=== PATIENT | male | born 1950 | race Caucasian/White ===

== ENCOUNTER 2020-05-28 05:38 | Observation (INO) | payer MEDICARE, SELFPAY ==
--- NOTE | ~2020-05-28 | XR_ITS ---
XR chest 1V portable DATE: 05/28/2020 06:22 INDICATION: Left-sided chest pain radiating to shoulder blades for 2 hours TECHNIQUE: Portable AP chest on 05/28/2020 at 0624 hours COMPARISON: None FINDINGS: Heart size is within normal limits. There is mild infiltrate or atelectasis at the lung bases. No pulmonary infiltrate or consolidation, pleural effusion or pulmonary vascular congestion or pneumo thorax is noted otherwise. IMPRESSION: Mild infiltrate or atelectasis at the lung bases Reviewed, dictated and finalized at location A.
[2020-05-28 05:45] VITALS: BP 138/77; PULSE 56; RESP 19; TEMP 36.5; O2SAT 99
--- NOTE | 2020-05-28 05:53 | ECG_ITS ---
Measurements Intervals [place] Rate: 57 P: -81 CA: 151 QRS: -21 QRSD: 109 T: -6 QT: 406 QTc: 397 Interpretive Statements SINUS BRADYCARDIA DELAYED PRECORDIAL R/S TRANSITION BORDERLINE T WAVE ABNORMALITY- ANT/INF LEADS BASELINE ARTIFACT- V1 BORDERLINE ECG Electronically Signed On 05-28-2020 6:46:39 CDT by Yovani Valdez D.O.
--- NOTE | 2020-05-28 05:53 | ED.CHESTPAIN ---
HPI - Chest Pain General Chief Complaint: Chest Pain Stated Complaint: cp Time Seen by Provider: 05/28/20 05:50 Source: RN notes reviewed History of Present Illness HPI narrative: Patient presents to emergency department from home for chest pain. Patient states he woke up approximately 4 AM and needed to use the restroom. He states when he sat up he began to have pain in between his shoulder blades going up into his neck. He states that pain then progressed into pain into his left upper chest. Patient states the pain described as an ache and a pressure. He states that he got up and walked around for a while and that the pain eventually subsided he did take 2 baby aspirin's at home. He states at this time he has no pain he denies any fevers or chills shortness of breath abdominal pain nausea vomiting or any other symptoms Related Data Home Medications Medication Instructions Recorded Confirmed aspirin 81 mg tablet,delayed 81 mg PO DAILY 03/08/20 release cetirizine 10 mg tablet 5 mg PO DAILY PRN 03/08/20 cholecalciferol (vitamin D3) 100 100 mcg PO DAILY 03/08/20 mcg (4,000 unit) capsule hydrocortisone 2.5 % topical cream 1 applic TOPICAL BID PRN 03/08/20 lisinopril 20 mg tablet 20 mg PO DAILY 03/08/20 rosuvastatin 20 mg tablet 20 mg PO DAILY 03/08/20 Allergies Allergy/AdvReac Type Severity Reaction Status Date / Time No Known Allergies Allergy Verified 05/28/20 05:50 Review of Systems Review of Systems: Narrative: Gen.: Denies fevers or chills ENT: Denies congestion Respiratory: Denies shortness of breath or cough CV: See HPI GI: Denies abdominal pain nausea, emesis or diarrhea Musculoskeletal: Denies back pain or muscle pain Neuro: Denies numbness, tingling, weakness or focal weakness Skin: Denies rash Except as documented, all other systems reviewed and negative [facility] Past Medical History Medical History (Updated 05/28/20 @ 06:41 by Maulik Telles DO) Hypercholesterolemia Hypertension Social History Social History (Updated 05/28/20 @ 05:55 by Maulik Telles DO) Smoking status: Never smoker Exam Narrative: Exam Narrative: APPEARANCE: No acute distress, nontoxic, resting in bed EYES: EOMI HEENT: Normocephalic, atraumatic, OMM RESPIRATORY: No respiratory distress Clear to auscultation bilaterally with no rhonchi wheezing or rales. CARDIOVASCULAR: Regular rate and rhythm without murmurs rubs or gallops. ABDOMINAL: Soft, nontender, nondistended, no rebound or guarding MUSCULOSKELETAl: Moves all extremities. No clubbing, cyanosis or edema. NEURO: Awake and alert. Following commands, speech normal, no focal deficits SKIN:: Warm, dry. No rashes lesions or abrasions PSYCHIATRIC: Normal affect/mood, Course Course Emergency Course: Discussed with Dr. Valdez presentation work-up. Agrees admission of the chest pain center Discussed with patient and family results of workup and diagnosis. Discussed need for admission. Patient and family understand and agree to current treatment plan Vital Signs Vital signs: Vital Signs Temperature 97.7 F 05/28/20 05:45 Pulse Rate 56 L 05/28/20 05:45 Respiratory Rate 19 05/28/20 05:45 Blood Pressure 138/77 05/28/20 05:45 Pulse Oximetry 99 05/28/20 05:45 Temperature 97.7 F 05/28/20 05:45 Pulse Rate 67 05/28/20 06:13 Respiratory Rate 19 05/28/20 05:45 Blood Pressure 138/77 05/28/20 05:45 Pulse Oximetry 99 05/28/20 05:45 MDM - Chest Pain Lab Data Result diagrams: 05/28/20 05:56 05/28/20 05:56 Labs: Lab Results 05/28/20 05/28/20 05/28/20 Range/Units 05:56 05:56 05:56 WBC 6.8 (4.5-10.0) K/mm3 RBC 4.58 L (4.6-6.20) M/mm3 Hgb 13.7 L (14.0-18.0) g/dL Hct 40.6 L (42.0-52.0) % MCV 88.6 (80-100) fl MCH 29.9 (26-34) pg MCHC 33.7 (32-36) g/dl RDW 12.3 (11.5-14.5) % Plt Count 239 (150-375) k/mm3 MPV 10.8 H (7.4-10.4) fl Immature Gran
[2020-05-28 06:03] LABS: Basophils Percent Auto 0.6 % (0.2-1.2); Eosinophils Absolute Auto 0.2 K/mm3 (0-0.3); Eosinophils Percent Auto 3.2 % (0-4.4); Hematocrit 40.6 % (42.0-52.0); Hemoglobin 13.7 g/dL (14.0-18.0); Immature Granulocyte Absolute 0.04 K/mm3 (0.00-0.031); Immature Granulocyte Percent A 0.6 % (0-0.5); Lymphocytes Absolute Auto 1.72 K/mm3 (0.9-3.2); Lymphocytes Percent Auto 25.1 % (18.3-44.2); Mean Corpuscular HGB Conc 33.7 g/dl (32-36); Mean Corpuscular Hemoglobin 29.9 pg (26-34); Mean Corpuscular Volume 88.6 fl (80-100); Mean Platelet Volume 10.8 fl (7.4-10.4); Monocytes Absolute Auto 0.7 K/mm3 (0.1-0.6); Monocytes Percent Auto 9.6 % (2.6-8.5); Neutrophils Absolute Auto 4.2 K/mm3 (1.3-6.7); Neutrophils Percent Auto 60.9 % (45.5-73.1); Platelet Count Result 239 k/mm3 (150-375); Red Blood Count 4.58 M/mm3 (4.6-6.20); Red Cell Distribution Width 12.3 % (11.5-14.5); White Blood Count 6.8 K/mm3 (4.5-10.0)
[2020-05-28] MEDS: ASPIRIN 81 MG CHEWABLE TABLET 324 MG PO (06:12)
[2020-05-28 06:13] VITALS: PULSE 67
[2020-05-28 06:14] LABS: INR 0.9; Partial Thromboplastin Time 21.5 SECONDS (22.3-36.8); Prothrombin Time 12.2 Seconds (11.1-14.7)
[2020-05-28 06:20] LABS: Alanine Aminotransferase 28 U/L (4-50); Albumin Level 4.3 g/dL (3.5-5.1); Alkaline Phosphatase 88 U/L (38-126); Anion Gap 8 mmol/L (8-16); Aspartate Amino Transferase 30 U/L (17-59); Bilirubin,Total 0.3 mg/dL (0.2-1.3); Blood Urea Nitrogen 26 mg/dL (9-20); Calcium 8.9 mg/dL (8.4-10.2); Carbon Dioxide 26 mmol/L (22-30); Chloride 105 mmol/L (98-107); Estimated Glomerular Filt Rate > 60; Glucose 111 mg/dL (75-110); Lipase 58 U/L (23-300); Potassium 4.3 mmol/L (3.4-5.0); Sodium 139 mmol/L (137-145)
[2020-05-28 06:31] LABS: Troponin I < 0.012 ng/mL (0.000-0.034)
[2020-05-28 06:54] VITALS: BP 115/71; PULSE 54; RESP 17; O2SAT 97
--- NOTE | 2020-05-28 07:50 | ADMGEN ---
This patient, Orlando Olmstead, was admitted to [facility] Patient/family oriented to hospital policies and general routines including ID bracelet, bed and alarms, visiting hours, pain management, procedures, bathroom and other care routines, personal items, smoking policy, room service/diet, and visiting hours. DENIES CP OR SOB ON ARRIVAL. Information on how to activate the Rapid Response Team has been discussed. Patient/Family are encouraged to report perceived risks to care and to ask questions if they do not understand what they are told or what they should do.
--- NOTE | 2020-05-28 07:58 | PC.NURSE ---
DR. HOWARD TO BEDSIDE TO SEE PT. EXPLAINED ORDERS AND PLAN OF CARE.
[2020-05-28 08:00] VITALS: BP 132/75; PULSE 56; PULSE 59; RESP 17; TEMP 36.4; O2SAT 100; BMI 33.3
--- NOTE | 2020-05-28 08:15 | PM.IMHP ---
H&P: HPI History of Present Illness Date/Time: 05/28/20 08:15 Reason for admit: Chest pain. 69 yr old man presented to ED with chest pain. He has a history of hypertension and dyslipidemia. Reports he woke up at 4:30 this morning to use restroom and noted scapular pain that radiated to neck then anterior left chest area. He took 2 baby aspirin at home, had a large bowel movement, and chest pain resolved. He woke up his and she drove him in to ED. No recurrence of chest pains. He states that he does have occasional back pain that he has to move his body and it would resove. He can walk miles without any problems. Chief complaint: chest pain Narrative: Orlando Olmstead is a 69 year old male Review of Systems Review of Systems: All systems reviewed & are unremarkable except as noted in HPI and below Constitutional: Constitutional: Reports as per HPI, Denies chills and Denies fever(s) Cardiovascular: Cardiovascular: Reports as per HPI, Reports chest pain, Denies leg edema, Denies lightheadedness and Denies dyspnea on exertion Respiratory: Respiratory: Reports as per HPI and Denies dyspnea Gastrointestinal: Gastrointestinal: Reports as per HPI and Denies abdominal pain Genitourinary: Genitourinary: Reports as per HPI and Denies dysuria Musculoskeletal: Musculoskeletal: Reports as per HPI and Reports back pain Neurologic: Reports as per HPI, Denies dizziness and Denies syncope [facility] Past Medical History Medical History (Updated 05/28/20 @ 06:41 by Maulik Telles DO) Hypercholesterolemia Hypertension Social History Social History (Updated 05/28/20 @ 05:55 by Maulik Telles DO) Smoking status: Never smoker Meds Home Medications and Allergies Home Medications Medication Instructions Recorded Confirmed Type aspirin 81 mg tablet,delayed 81 mg PO DAILY 03/08/20 History release cetirizine 10 mg tablet 5 mg PO DAILY PRN 03/08/20 History cholecalciferol (vitamin D3) 100 100 mcg PO DAILY 03/08/20 History mcg (4,000 unit) capsule hydrocortisone 2.5 % topical cream 1 applic TOPICAL BID PRN 03/08/20 History lisinopril 20 mg tablet 20 mg PO DAILY 03/08/20 History rosuvastatin 20 mg tablet 20 mg PO DAILY 03/08/20 History Allergies Allergy/AdvReac Type Severity Reaction Status Date / Time No Known Allergies Allergy Verified 05/28/20 05:50 Vital Signs Vital Signs - 24 hr 05/28/20 05:45 05/28/20 06:13 05/28/20 06:54 Temperature 97.7 F Pulse Rate 56 L 67 54 L Respiratory Rate 19 17 Blood Pressure 138/77 115/71 Pulse Oximetry 99 97 Exam Const: General: cooperative, healthy appearing and comfortable Neck: Neck: no JVD Carotids: no bruits Resp: Auscultation: clear to auscultation bilaterally, no crackles, no rales, no rhonchi and no wheezes Cardio: Jugular venous distension: no JVD Rate: regular rate Rhythm: regular rhythm Heart sounds: no murmurs Peripheral pulses: dorsalis pedis present GI: GI Palp: No abdominal tenderness and Yes Soft to palpation Neuro: General: oriented to person, oriented to place and oriented to time Extrem: Right lower extremity: no edema Left lower extremity: no edema H&P: Results Labs Labs: Short CBC 05/28/20 Range/Units 05:56 WBC 6.8 (4.5-10.0) K/mm3 Hgb 13.7 L (14.0-18.0) g/dL Hct 40.6 L (42.0-52.0) % Plt Count 239 (150-375) k/mm3 BMP 05/28/20 05:56 Sodium 139 Potassium 4.3 Chloride 105 Carbon Dioxide 26 BUN 26 H Creatinine 0.90 Glucose 111 H Calcium 8.9 Cardiac Enzymes 05/28/20 Range/Units 05:56 Troponin I < 0.012 (0.000-0.034) ng/mL Liver Function 05/28/20 Range/Units 05:56 Total Bilirubin 0.3 (0.2-1.3) mg/dL AST 30 (17-59) U/L ALT 28 (4-50) U/L Alkaline Phosphatase 88 (38-126) U/L Albumin 4.3 (3.5-5.1) g/dL Assessment and Plan Assessment and plan (1) Chest pain: Code(s): R07.9 - Chest pain, unspecified Stat
--- NOTE | 2020-05-28 09:35 | ECG_ITS ---
Measurements Intervals [place] Rate: 53 P: 38 NM: 193 QRS: -21 QRSD: 101 T: -10 QT: 403 QTc: 379 Interpretive Statements SINUS BRADYCARDIA DELAYED PRECORDIAL R/S TRANSITION BORDERLINE T WAVE ABNORMALITY- INFERIOR LEADS BORDERLINE ECG Electronically Signed On 05-28-2020 9:37:50 CDT by Yovani Valdez D.O.
[2020-05-28 09:43] LABS: Cholesterol 137 mg/dL (0-200); HDL Direct 39 mg/dL; Triglycerides 77 mg/dL (<150)
[2020-05-28 09:54] LABS: LDL Cholesterol Direct 84 mg/dL
[2020-05-28 09:55] LABS: Troponin I < 0.012 ng/mL (0.000-0.034)
[2020-05-28 10:00] VITALS: PULSE 56
--- NOTE | 2020-05-28 11:00 | EST_ITS ---
Patient Info Name: Orlando Olmstead Age: 69 years : 1950 Gender: Male Ht: 69 in Wt: 248 lbs BSA: 2.38 m2 HR: 64 bpm BP: 127 / 67 mmHg Exam Date: 05/28/2020 11:12 AM Exam Location: [facility] Patient Status: Inpatient Admit Date: 05/28/2020 Staff Ordering Physician: Yovani Valdez DO Certified Pedorthotist: Esteban Flannery RDCS, RT Attending Provider: Yovani Valdez DO Exercise Technologist: Anni Amaro RDCS Exercise Physician: Yovani Valdez DO Exam Type: CA stress echo Study Info Indications R07.9 - Chest pain, unspecified Treadmill exercise stress echocardiogram is performed. Summary 1. 1. Negative Obed exercise stress test for ischemic ST changes by ECG criteria. 2. 2. Good functional capacity, achieving 10 METs of workload. 3. 3. Appropriate HR response to exercise. 4. 4. Appropriate HR recovery at 1 minute post exercise. 5. 5. Negative stress echocardiogram for ischemia by wall motion analysis. 6. 6. Patient informed of the above results. Stress Echo Findings Left Ventricle Appropriate increase in LV endocardial thickening with systole. Appropriate augmenation of contractility with systole. No wall motion abnormality. Left Ventricle Normal LV systolic function, no wall motion abnormality. Protocol: Obed Stress ECG Details Stage: REST Duration (min): 0 min : 42 sec Speed (mph): 0.0 Grade (%): 0 HR (bpm): 56 SBP (mmHg): --- DBP (mmHg): --- METS: --- Stage: REST Duration (min): 13 min : 46 sec Speed (mph): 0.0 Grade (%): 0 HR (bpm): 73 SBP (mmHg): 127 DBP (mmHg): 67 METS: --- Stage: STAGE 1 Duration (min): 1 min : 0 sec Speed (mph): 1.7 Grade (%): 10 HR (bpm): 92 SBP (mmHg): 127 DBP (mmHg): 67 METS: --- Stage: STAGE 1 Duration (min): 2 min : 0 sec Speed (mph): 1.7 Grade (%): 10 HR (bpm): 102 SBP (mmHg): 127 DBP (mmHg): 67 METS: --- Stage: STAGE 1 Duration (min): 3 min : 0 sec Speed (mph): 1.7 Grade (%): 10 HR (bpm): 105 SBP (mmHg): 127 DBP (mmHg): 67 METS: --- Stage: STAGE 2 Duration (min): 1 min : 0 sec Speed (mph): 2.5 Grade (%): 12 HR (bpm): 110 SBP (mmHg): 143 DBP (mmHg): 74 METS: --- Stage: STAGE 2 Duration (min): 2 min : 0 sec Speed (mph): 2.5 Grade (%): 12 HR (bpm): 116 SBP (mmHg): 143 DBP (mmHg): 74 METS: --- Stage: STAGE 2 Duration (min): 3 min : 0 sec Speed (mph): 2.5 Grade (%): 12 HR (bpm): 119 SBP (mmHg): 143 DBP (mmHg): 74 METS: --- Stage: STAGE 3 Duration (min): 1 min : 0 sec Speed (mph): 3.4 Grade (%): 14 HR (bpm): 129 SBP (mmHg): 143 DBP (mmHg): 74 METS: --- Stage: STAGE 3 Duration (min): 2 min : 0 sec Speed (mph): 3.4 Grade (%): 14 HR (bpm): 134 SBP (mmHg): 156 DBP (mmHg): 88 METS: --- Stage: STAGE 3 Duration (min): 2 min : 1 sec Speed (mph): 0.0 Grade (%):
--- NOTE | 2020-05-28 11:09 | PC.NURSE ---
TO STRESS ECHOCARDIOGRAM VIA WC FOR TESTING. DENIES CP OR SOB AT THIS TIME. AT BEDSIDE.
--- NOTE | 2020-05-28 11:48 | PM.DS ---
DS: Admitting Diagnosis Admitting Diagnosis Admitting Diagnosis: chest pain DS: Summary Hospital Course Hospital Course: Please refer to H and P as this is same day discharge. 69 yr old man presented to ED with chest pains. No recurrence since he's been in hospital. Troponins and EKG are negative. Stress echo shows no ischemia. He is feeling great. His chest pain is likely musculoskeletal in origin. Patient will be discharged home on same home medications. F/U with me in 1-2 weeks. Diet: Heart healthy diet. Acitivity: as tolerated. Disposition: Home. F/U with me in 1-2 weeks. Status at Discharge Functional status at discharge: independent ambulation Overall status at discharge: patient is back to baseline Time Spent with Patient Time attestation: Total time spent providing and/or coordinating discharge services: Time spent: Less than 30 minutes Specific discharge activities: Activity as tolerated. DS: Data Data Completed and Pending Labs on day of discharge: Labs from last 24 hours 05/28/20 05/28/20 05/28/20 09:20 09:20 05:56 WBC RBC Hgb Hct MCV MCH MCHC RDW Plt Count MPV Immature Gran % (Auto) Neut % (Auto) Lymph % (Auto) [place] % (Auto) Eos % (Auto) Baso % (Auto) Lymph # (Auto) [place] # (Auto) Eos # (Auto) Baso # (Auto) Abs Immat Gran (auto) Absolute Neuts (auto) Absolute Nucleated RBC Nucleated RBC % PT INR APTT Sodium 139 Potassium 4.3 Chloride 105 Carbon Dioxide 26 Anion Gap 8 BUN 26 H Creatinine 0.90 Estim Creat Clear Calc Not Reportable Estimated GFR > 60 Glucose 111 H Calcium 8.9 Total Bilirubin 0.3 AST 30 ALT 28 Alkaline Phosphatase 88 Troponin I < 0.012 < 0.012 Total Protein 7.0 Albumin 4.3 Triglycerides 77 Cholesterol 137 LDL Cholesterol Direct 84 HDL Direct 39 Lipase 58 05/28/20 05/28/20 05:56 05:56 WBC 6.8 RBC 4.58 L Hgb 13.7 L Hct 40.6 L MCV 88.6 MCH 29.9 MCHC 33.7 RDW 12.3 Plt Count 239 MPV 10.8 H Immature Gran % (Auto) 0.6 H Neut % (Auto) 60.9 Lymph % (Auto) 25.1 [place] % (Auto) 9.6 H Eos % (Auto) 3.2 Baso % (Auto) 0.6 Lymph # (Auto) 1.72 [place] # (Auto) 0.7 H Eos # (Auto) 0.2 Baso # (Auto) 0.0 Abs Immat Gran (auto) 0.04 H Absolute Neuts (auto) 4.2 Absolute Nucleated RBC 0.0 Nucleated RBC % 0.0 PT 12.2 INR 0.9 APTT 21.5 L Sodium Potassium Chloride Carbon Dioxide Anion Gap BUN Creatinine Estim Creat Clear Calc Estimated GFR Glucose Calcium Total Bilirubin AST ALT Alkaline Phosphatase Troponin I Total Protein Albumin Triglycerides Cholesterol LDL Cholesterol Direct HDL Direct Lipase Discharge Plan Discharge Discharging Clinician: Yovani Valdez Patient Disposition: Home, Self-Care Activity: as tolerated Diet: heart healthy Patient Instructions: Antibiotic Form Stand Alone Forms: General Discharge Information Follow-up/Referrals: Yovani Valdez DO [Physician] - 2 Weeks Discharge Medications: Continued hydrocortisone 2.5 % cream 1 applic TOPICAL BID PRN (Reason: Itching) RF: 0 lisinopril 20 mg tablet 20 mg PO HS RF: 0 rosuvastatin 20 mg tablet 20 mg PO HS RF: 0 aspirin [Adult Low Dose Aspirin] 81 mg tablet,delayed release (DR/EC) 81 mg PO DAILY RF: 0 cetirizine 10 mg tablet 5 mg PO DAILY PRN (Reason: Congestion) RF: 0 cholecalciferol (vitamin D3) 100 mcg (4,000 unit) capsule 100 mcg PO DAILY RF: 0 Date of admission: 05/28/20 06:35 Primary Care Provider: Yun,Kari De La Torre Admitting Provider: Yovani Valdez Attending physician on admission: Yovani Valdez Condition: Stable
--- NOTE | 2020-05-28 11:57 | PC.NURSE ---
RETURNS TO BUSINESS SYSTEMS LEAD 6 VIA WC S/P STRESS ECHO.
--- NOTE | 2020-05-28 12:45 | PC.NURSE ---
PER DR. HOWARD, OK TO DISCHARGE HOME WITHOUT COMPLETING 6HR TROPONIN OR EKG. STRESS TEST NEGATIVE. IV SITE DISCONTINUED INTACT. SLADE WELL. SITE WNL AND DRESSED. REVIEWED DISCHARGE INSTRUCTIONS W/ PT. QUESTIONS ANSWERED. VOICED UNDERSTANDING OF ALL. COPY OF SUCH GIVEN. DENIES CP OR SOB AT THIS TIME. DISCHARGED HOME AT 1250, OUT AMBULATORY W/ ALL PERSONAL BELONGINGS AND DISCHARGE INSTRUCTIONS IN HAND W/ AT SIDE. VOICES NO C/O.
== END 2020-05-28 12:50 | disposition home or self-care (01) ==
LOC: ANHED 06:41 → ANHCPC 06:43
PROVIDERS: Admitting Provider Internal Medicine Cardiovascular Disease; Emergency Provider Emergency Medicine; PCP Family Medicine; Visit Provider Internal Medicine Cardiovascular Disease
DX: R07.89 Other chest pain (principal); I10 Essential (primary) hypertension; E78.00 Pure hypercholesterolemia, unspecified
CPT/HCPCS: 36415; 71045; 80053; 80061; 83690; 84484; 85025; 85610; 85730; 93005; 93351; 99285; A9270; G0378

== ENCOUNTER 2020-06-05 08:20 | Emergency (ER) | payer MEDICARE, SELFPAY ==
[2020-06-05 08:25] VITALS: BP 137/76; PULSE 74; RESP 16; TEMP 36.8; O2SAT 100
--- NOTE | 2020-06-05 08:39 | ED.GENADULT ---
HPI - General Adult General Chief complaint: Skin/Abscess/Foreign Body Stated complaint: RASH Source: patient Mode of arrival: ambulatory Limitations: no limitations History of Present Illness HPI narrative: 69 y/o male. PMH includes: See Chart. Presents to clinic today with acute complaints of Rash/Poison Tiarra located to bilateral lower extremities and LT hand for past 5 days. Pt reports working with shrubs in yard when manifestations first began. He has been using Calamine and Aveeno OTC treatments at home, with Sub-therapeutic relief. No facial or oral involvements. No dyspnea. No large open wounds. He reports last time he had similar issues, steroids worked well . He is not a diabetic. No additional acute c/o upon PE. Related Data Home Medications Medication Instructions Recorded Confirmed aspirin 81 mg tablet,delayed 81 mg PO DAILY 03/08/20 05/28/20 release cholecalciferol (vitamin D3) 100 100 mcg PO DAILY 03/08/20 05/28/20 mcg (4,000 unit) capsule lisinopril 20 mg tablet 20 mg PO HS 03/08/20 05/28/20 rosuvastatin 20 mg tablet 20 mg PO HS 03/08/20 05/28/20 Allergies Allergy/AdvReac Type Severity Reaction Status Date / Time No Known Allergies Allergy Verified 05/28/20 09:38 Review of Systems Review of Systems: Narrative: CONSTITUTIONAL: Denies fever, chills, sweats. EYES: Denies visual changes, redness, discharge. ENT: Denies rhinorrhea, congestion, sore throat, otalgia. CARDIOVASCULAR: Denies chest pain, palpitations, edema. RESPIRATORY: Denies dyspnea, wheezing, cough GASTROINTESTINAL: Denies abdominal pain, nausea, vomiting, diarrhea. GENITOURINARY: Denies dysuria, hematuria, abnormal discharge SKIN: Rash and itching to bilateral legs and LT hand. MUSCULOSKELETAL: Denies acute back pain, joint pain, or myalgia. NEUROLOGIC: Denies numbness, or focal weakness. PSYCHIATRIC: Denies anxiety or depression. [facility] Past Medical History Medical History Hypercholesterolemia Hypertension Social History Social History Smoking status: Never smoker Second hand tobacco smoke exposure: No Alcohol intake: current Drinks per week: 2 Substance use type: does not use Gender identity (if verbalized by the patient): Male Spiritual care concerns: No Exam Narrative: Exam Narrative: GENERAL: This is a well-nourished, well-developed patient, in no apparent distress. HEAD: normocephalic, atraumatic. EYES: PERRL. Sclera clear/white. Vision is grossly intact. EARS: External ears normal, auditory canals clear and without drainage, TMs normal without perforation. Hearing grossly intact. NOSE: External nose normal with no obvious nasal discharge, nares without redness, no rhinorrhea. THROAT: Mucous membranes moist, posterior pharynx clear. NECK: Neck supple, non-tender without lymphadenopathy, masses or thyromegaly. CARDIOVASCULAR: Regular rate and rhythm without murmurs, gallops, or rubs. RESPIRATORY: Clear to auscultation. Breath sounds equal bilaterally. No wheezes, rales, or rhonchi. GASTROINTESTINAL: Abdomen soft, non-tender, nondistended. Bowel sounds are active. No hepato-splenomegaly, or palpable masses. No guarding. SKIN: With scattered raised patches of blistering and crustations located to posterior knee LLE, as well as posterior calf RLE. LT hand with small area above LT thumb. Serosanguineous discharge to all areas. Consistent with poison tiarra/oak. No deep tissue wounds. Good turgor. NEURO: awake, alert, and oriented to person, place and time. There were no obvious focal neurologic abnormalities. Steady gait EXTREMITIES: Normal range of motion. No edema. No calf tenderness. Negative Homans sign bilaterally. BACK: Nontender without deformity or crepitance. No flank tenderness. Gabrielle Coma Scale Eye Opening: Spontaneous 4 Gabrielle Coma Scale Motor: Obeys Commands 6 Gabrielle Coma Sca
[2020-06-05] MEDS: TRIAMCINOLONE ACET INJ 40 MG/ML VIAL IM (08:46)
== END 2020-06-05 09:13 | disposition home or self-care (01) ==
PROVIDERS: Emergency Provider Nurse Practitioner Adult Health
DX: L25.5 Unspecified contact dermatitis due to plants, except food (principal); E78.00 Pure hypercholesterolemia, unspecified; I10 Essential (primary) hypertension
CPT/HCPCS: 96372; 99213; G0463; J3301

== ENCOUNTER 2022-12-04 08:19 | Emergency (ER) | payer MEDICARE, SELFPAY ==
[2022-12-04] VITALS (25 sets, daily range): BP systolic 99–129; BP diastolic 50–87; PULSE 48–65; RESP 11–19; O2SAT 98–100
--- NOTE | ~2022-12-04 | CT_ITS ---
EXAMINATION: CT brain wo con DATE: 12/04/2022 09:44 INDICATION: Fall with head injury TECHNIQUE: Computed tomography (CT) of the head was performed without intravenous contrast. Sagittal and coronal reconstructions were performed. The mA was adjusted according to patient size. Iterative reconstruction technique was employed. The dose-length product was 605.33 mGy-cm. COMPARISON: None FINDINGS: No fracture. No acute intracranial hemorrhage, acute infarction or abnormal extra axial fluid collect ion. Prominent perivascular space at the inferior aspect of the right basal ganglia. Ventricles are n ormal and symmetric. No mass/mass effect. The orbits, paranasal sinuses and mastoid air cells are nor mal. IMPRESSION: 1. No fracture or acute intracranial process. Reviewed, dictated and finalized at location L.
--- NOTE | ~2022-12-04 | XR_ITS ---
EXAMINATION: XR chest 1V portable DATE: 12/04/2022 09:14 INDICATION: Weakness post fall TECHNIQUE: frontal view of the chest was obtained. COMPARISON: Chest radiograph dated 05/28/2020 FINDINGS: The lungs are clear with no focal airspace opacities, pulmonary edema, pleural effusion or pneumothor ax. The cardiomediastinal silhouette is normal. Visualized bones and soft tissues are unremarkable. IMPRESSION: 1. No acute cardiopulmonary disease. Reviewed, dictated and finalized at location L.
--- NOTE | ~2022-12-04 | CT_ITS ---
EXAMINATION: CT facial & cervical spine wo DATE: 12/04/2022 09:44 INDICATION: Head injury. TECHNIQUE: Computed tomography (CT) of the maxillofacial region and cervical spine was performed with out intravenous contrast. Automated exposure control and iterative reconstruction technique were empl oyed. The dose-length product was 482.02 mGy-cm. COMPARISON: None FINDINGS: MAXILLOFACIAL CT: There is rightward deviation of the nasal septum. No fracture. There is mild mucosal thickening in th e paranasal sinuses. The orbits are normal. CERVICAL SPINE CT: There is 3 degrees levocurvature of cervical spine. Vertebral body heights are normal. There is moder ately decreased disc height from C2-C3 through C4-C5 and severely decreased disc height at C5-C6 and C6-C7. The following disc levels are specifically discussed: C2-C3: There is ankylosis of left uncovertebral joint with mild hypertrophy. There is moderate left f acet joint osteoarthritis. There is ankylosis of right facet joint with mild hypertrophy. There is mi ld bilateral neural foraminal stenosis. There is no central canal stenosis. C3-C4: There is severe right and mild left uncovertebral joint osteoarthritis. There is severe right and moderate left facet joint osteoarthritis. There is moderate right and mild left neural foraminal stenosis. There is mild central canal stenosis. C4-C5: There is severe bilateral uncovertebral joint osteoarthritis. There is mild right and moderate left facet joint osteoarthritis. There is mild right and moderate left neural foraminal stenosis. Th ere is mild central canal stenosis. C5-C6: There is severe bilateral uncovertebral joint osteoarthritis. There is mild bilateral facet kiera int osteoarthritis. There is moderate right and mild left neural foraminal stenosis. There is moderat e central canal stenosis. C6-C7: There is severe bilateral uncovertebral joint osteoarthritis. There is severe right and modera te left facet joint osteoarthritis. There is mild bilateral neural foraminal stenosis. There is mild central canal stenosis. C7-T1: There is no uncovertebral joint osteoarthritis. There is severe right and moderate left facet joint osteoarthritis. There is mild right neural foraminal stenosis. There is no central canal stenos is. IMPRESSION: 1. No fracture. 2. Severe cervical spondylosis. Reviewed, dictated and finalized at location A.
--- NOTE | 2022-12-04 08:32 | ECG_ITS ---
Measurements Intervals [place] Rate: 57 P: 18 AR: 184 QRS: -23 QRSD: 105 T: 33 QT: 414 QTc: 405 Interpretive Statements SINUS BRADYCARDIA CANNOT RULE OUT SEPTAL INFARCT, AGE INDETERMINATE BASELINE ARTIFACT- I, II, AVR, V1 ABNORMAL ECG COMPARED TO ECG 05/28/2020 09:29:30 MYOCARDIAL INFARCT FINDING NOW PRESENT Electronically Signed On 12-04-2022 9:05:44 CDT by Yovani Valdez D.O.
--- NOTE | 2022-12-04 08:38 | ED.GENADULT ---
HPI - General Adult General Chief complaint: Wound/Laceration Stated complaint: FALL, CHIN LAC Time Seen by Provider: 12/04/22 08:37 Source: patient and family Mode of arrival: ambulatory Limitations: no limitations History of Present Illness HPI narrative: Patient is a 72-year-old male with a history of hypertension, hyperlipidemia, presenting to the emergency department for evaluation following a fall. Patient states that he was outside working on his deck when he tripped over a landscaping stone, causing him to fall forward. Patient states that he covered his face with his right arm. Patient reports that his watch did hit his face, and caused a small abrasion to his chin. Patient denies loss of consciousness. No prodromal symptoms prior to this such as lightheadedness, dizziness or palpitations. Patient denies any current severe headache pain, neck pain, vision changes, nausea or vomiting. He denies chest wall pain, pelvic pain, back pain or extremity pain. He has been ambulatory since that time. Patient states that in route to the hospital he became slightly lightheaded. Reports that he began to feel very anxious. Denies passing out. Related Data Home Medications Medication Instructions Recorded Confirmed aspirin 81 mg tablet,delayed 81 mg PO DAILY 03/08/20 09/16/21 release (Adult Low Dose Aspirin) cholecalciferol (vitamin D3) 100 100 mcg PO DAILY 03/08/20 09/16/21 mcg (4,000 unit) capsule lisinopril 20 mg tablet 20 mg PO HS 03/08/20 09/16/21 rosuvastatin 20 mg tablet 20 mg PO HS 03/08/20 09/16/21 Allergies Allergy/AdvReac Type Severity Reaction Status Date / Time No Known Allergies Allergy Verified 12/04/22 08:20 Review of Systems Review of Systems: CONSTITUTIONAL: Denies fever, chills, or sweats. EYES: Denies visual changes, redness, or discharge. ENT: Denies rhinorrhea, congestion, sore throat, or otalgia. CARDIOVASCULAR: Denies chest pain, palpitations, or edema. RESPIRATORY: Denies cough or dyspnea. GASTROINTESTINAL: Denies abdominal pain, nausea, vomiting, or diarrhea. GENITOURINARY: Denies dysuria or hematuria. SKIN: Denies rash or itching. Reports abrasion to chin and nose. MUSCULOSKELETAL: Denies back pain, joint pain, or myalgia. NEUROLOGIC: Denies headache, numbness, or weakness. PMFSH Past Medical History Medical History Hypercholesterolemia Hypertension Social History Social History Smoking status: Never smoker Second hand tobacco smoke exposure: No Alcohol intake: current Drinks per week: 2 Alcohol use details: 2 BEERS WEEKLY Substance use type: does not use Living arrangements: with family Gender identity (if verbalized by the patient): Male Spiritual care concerns: No Exam Narrative: Nursing note and vitals reviewed. CONSTITUTIONAL: The patient appears well-developed and well-nourished. No distress. HEAD: Normocephalic; stellate abrasion to chin. Abrasion to nasal bridge. Edema of nasal bridge. EYES: PERRL, EOMI, normal conjunctiva, anicteric EARS: External ears clear bilaterally, no hemotympanum MOUTH: OP clear, no erythema, exudates NECK: midline trachea, supple, FROM. No midline cervical spinal tenderness. CARDIOVASCULAR: Normal rate, regular rhythm, normal heart sounds and intact distal pulses. No murmurs, rubs, gallops. PULMONARY: Effort normal and breath sounds normal. No respiratory distress. The patient has no wheezes, rales, rhonchi. No chest wall tenderness, crepitus or ecchymoses. ABDOMINAL: Soft. Nontender, nondistended. No palpable masses EXTREMITIES:: moving all extremities symmetrically. -RUE: No deformity. Normal ROM at shoulder, elbow, wrist, and hand. Sensation intact M/U/R. Pulse 2+. -LUE: No deformity. Normal ROM at shoulder, elbow, wrist, and hand. Sensation intact M/U/R. Pulse 2+ -RLE: No deformity. Normal ROM at hip, knee, a
[2022-12-04] MEDS: SODIUM CHLORIDE 0.9% IV 1,000 ML 999 ML IV CONT (08:47)
[2022-12-04 09:05] LABS: Glucose Point of Care 130 mg/dl (65-105)
[2022-12-04 09:08] LABS: Fractional Inspired Oxygen 21 %; HCO3 VBG 19.8 mEq/l (24.0-30.0); PO2 VBG 28.9 mmHg (35.0-45.0)
[2022-12-04 09:11] LABS: Basophils Percent Auto 0.7 % (0.2-1.2); Eosinophils Absolute Auto 0.1 K/mm3 (0-0.3); Eosinophils Percent Auto 2.5 % (0-4.4); Hematocrit 40.2 % (42.0-52.0); Hemoglobin 13.4 g/dL (14.0-18.0); Immature Granulocyte Absolute 0.01 K/mm3 (0.00-0.031); Immature Granulocyte Percent A 0.2 % (0-0.5); Lymphocytes Absolute Auto 1.21 K/mm3 (0.9-3.2); Lymphocytes Percent Auto 30.1 % (18.3-44.2); Mean Corpuscular HGB Conc 33.3 g/dl (32-36); Mean Corpuscular Hemoglobin 29.8 pg (26-34); Mean Corpuscular Volume 89.3 fl (80-100); Mean Platelet Volume 10.1 fl (7.4-10.4); Monocytes Absolute Auto 0.5 K/mm3 (0.1-0.6); Monocytes Percent Auto 11.9 % (2.6-8.5); Neutrophils Absolute Auto 2.2 K/mm3 (1.3-6.7); Neutrophils Percent Auto 54.6 % (45.5-73.1); Platelet Count Result 259 k/mm3 (150-375); Red Cell Distribution Width 12.4 % (11.5-14.5)
[2022-12-04 09:12] LABS: pH VBG 7.468 (7.300-7.400)
[2022-12-04 09:21] LABS: Prothrombin Time 13.3 Seconds (11.1-14.7)
[2022-12-04 09:22] LABS: Partial Thromboplastin Time 21.2 SECONDS (22.3-36.8)
[2022-12-04 09:26] LABS: Lactic Acid Reflex 1.4 mmol/L (0.7-2.0)
[2022-12-04 09:27] LABS: Alanine Aminotransferase 30 U/L (6-50); Albumin Level 4.2 g/dL (3.5-5.1); Alkaline Phosphatase 74 U/L (38-126); Anion Gap 5 mmol/L (8-16); Aspartate Amino Transferase 33 U/L (17-59); Bilirubin,Total 0.6 mg/dL (0.2-1.3); Blood Urea Nitrogen 18 mg/dL (9-20); Calcium 9.1 mg/dL (8.4-10.2); Carbon Dioxide 26 mmol/L (22-30); Chloride 103 mmol/L (98-107); Estimated CRCL calculation 77 ml/min; Estimated Glomerular Filt Rate > 60; Glucose 138 mg/dL (65-110); Potassium 4.6 mmol/L (3.4-5.0); Sodium 134 mmol/L (137-145)
--- NOTE | 2022-12-04 09:36 | PC.NURSE ---
Patient off unit to CT.
[2022-12-04 09:39] LABS: NT Pro B Type Natriuretic Pept 44 pg/mL (19.9-100); Troponin I < 0.012 ng/mL (0.000-0.034)
[2022-12-04 12:14] LABS: Troponin I < 0.012 ng/mL (0.000-0.034)
== END 2022-12-04 12:54 | disposition home or self-care (01) ==
PROVIDERS: Emergency Provider Emergency Medicine
DX: S00.81XA Abrasion of other part of head, initial encounter (principal); R00.1 Bradycardia, unspecified; S00.33XA Contusion of nose, initial encounter; I10 Essential (primary) hypertension; E78.00 Pure hypercholesterolemia, unspecified; Z79.82 Long term (current) use of aspirin; M47.812 Spondylosis without myelopathy or radiculopathy, cervical region; R94.31 Abnormal electrocardiogram [ECG] [EKG]; W18.09XA Striking against other object with subsequent fall, initial encounter
CPT/HCPCS: 12011; 36415; 70450; 70486; 71045; 72125; 80053; 82803; 82948; 83605; 83880; 84443; 84484; 85025; 85610; 85730; 93005; 96360; 99284; J7030

== ENCOUNTER → 2023-02-04 14:18 | Outpatient (CLI) | payer MEDICARE, SELFPAY ==
--- NOTE | ~2023-02-04 | MR_ITS ---
EXAMINATION: MR ankle RT wo con DATE: 02/04/2023 15:21 INDICATION: Peroneal tendinitis TECHNIQUE: Magnetic resonance imaging (MRI) of the right ankle was performed without intravenous cont rast. Sequences included sagittal, coronal, and axial proton-density weighted fast spin echo without and with fat saturation. COMPARISON: None. FINDINGS: Medial ankle ligaments: Deep and superficial deltoid ligaments as well as the spring ligament are normal. Lateral ankle ligaments: The anterior and posterior inferior tibiofibular ligaments are normal. The anterior talofibular, calc aneofibular and posterior talofibular ligaments are normal. Tendons: Mild distal Achilles tendinosis. There is a small intrasubstance ganglion cyst extending 2 cm proxima lly from the calcaneal insertion. Small amount of fluid extending along the peroneal tendon sheath co nsistent with mild tenosynovitis. The peroneus longus tendon is normal. Moderate tendinopathy and johnny gitudinal split tearing of the peroneus brevis tendon. The tibialis anterior and extensor hallucis lo ngus and extensor digitorum longus tendons are normal. Additional mild tenosynovitis along the normal tibialis posterior tendon. The flexor digitorum longus and flexor hallucis longus tendons are normal . Plantar fascia: Small enthesophyte at the calcaneal origin of the plantar aponeurosis. No surrounding soft tissue or marrow edema to suggest acute plantar fasciitis. Bones/other: Bone alignment is normal. No fracture. Mild osteoarthritis in the midfoot. Prominent intraosseous augustine glion cyst within the medial cuneiform which appears to arise at the junction of the articular surfac es with the navicula and mid cuneiform. Additional small region of high-grade chondromalacia with und erlying subarticular edema-like signal change along the lateral side of the anterior rim of the tibia l plafond. Fluid: Physiologic amount of fluid in the joint spaces. IMPRESSION: 1. Peroneal tenosynovitis with moderate tendinopathy and longitudinal split tearing of the peroneus b beny tendon. 2. Additional mild tenosynovitis along the normal tibialis posterior tendon. 3. Mild distal Achilles tendinosis with tiny intrasubstance ganglion cyst. 4. 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 Reviewed, dictated and finalized at location B. IMPRESSION: 1. Peroneal tenosynovitis with moderate tendinopathy and longitudinal split tea ring of the peroneus brevis tendon. 2. Additional mild tenosynovitis along the normal tibialis posterior tendon. 3. Mild distal Achilles tendinosis with tiny intrasubstance ganglion cyst. 4. 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
== END ==
PROVIDERS: PCP Podiatrist Foot & Ankle Surgery; Visit Provider Podiatrist Foot & Ankle Surgery
DX: M76.71 Peroneal tendinitis, right leg (principal); M19.071 Primary osteoarthritis, right ankle and foot; M76.61 Achilles tendinitis, right leg
CPT/HCPCS: 73721

== ENCOUNTER 2023-08-05 13:56 | Outpatient (CLI) | payer MEDICARE, SELFPAY | END 2023-08-05 13:57 | disposition home or self-care (01) | LOC: ANHAUDASC 13:58 | PROVIDERS: PCP Podiatrist Foot & Ankle Surgery; Visit Provider Otolaryngology | DX: H90.3 Sensorineural hearing loss, bilateral (principal) | CPT/HCPCS: 92557; 92567 ==